=== PATIENT | female | born 2000 | race Caucasian/White ===

== ENCOUNTER 2024-10-02 11:53 | Emergency (ER) | payer OTHER ==
[~2024-10-02] VITALS: Ht 172.7 cm; Wt 52.6 kg
[2024-10-02 12:22] LABS: APPEARANCE,URINE CLEAR (CLEAR); BLOOD, URINE Negative Ery/uL (NEGATIVE); LEUKOCYTE ESTERASE ,URINE Negative (NEGATIVE); UGLUCOSE Negative (NEGATIVE)
[2024-10-02 12:25] LABS: NITRITE, URINE NEGATIVE (NEGATIVE); PREGNANCY TEST URINE QUAL NEGATIVE (NEGATIVE)
[2024-10-02] MEDS ORDERED: CEPH-570 PO (12:39)
[2024-10-02 12:52] VITALS: BP 132/87; TEMP 98.1; O2SAT 98
== END 2024-10-02 12:53 | disposition home or self-care (01) ==
LOC: ER 12:14
DX: N39.0 Urinary tract infection, site not specified (principal); R10.9 Unspecified abdominal pain; R35.0 Frequency of micturition; Z88.1 Allergy status to other antibiotic agents
CPT/HCPCS: 84703-TC; 87086-TC